=== PATIENT | male | born 1940 | race Caucasian/White ===

== ENCOUNTER 2017-11-20 16:12 | Emergency (ER) | payer MEDICARE, BC ==
[2017-11-20 16:24] VITALS: BP 167/76
--- NOTE | 2017-11-20 16:52 | EDM.PDOC ---
ED HPI GENERAL MEDICAL PROBLEM - General Chief Complaint: Gastrointestinal Problem Stated Complaint: CONSTIPATION Time Seen by Provider: 11/20/17 16:40 Source of Information: Reports: Patient History Limitations: Reports: No Limitations - History of Present Illness INITIAL COMMENTS - FREE TEXT/NARRATIVE: Patient is a 77-year-old male presents ED complaining of constipation. Patient states he has not had a satisfactory bowel movements over the past 2 days. States he's been experiencing low volume liquid stools with the sensation he has to poop. He did attempt to place a Fleet enema today and felt something blocking it. He is questioning being constipated. He does have a history of hemorrhoids in the past. 2 days ago he also placed preparation H cream in his rectum and may have lost the cap within his rectum. He also has a history of BPH with increased urinary frequency and decrease amount. He has no dysuria. At times he's had urinary retention. Denies any nausea,vomiting, fever, abdominal pain, dysuria, or blood in the stools. He's been on no recent antibiotics and has no history of C. difficile. There's been no ingestion of bad or questional food. Bilateral Lower Abdomen Pain Score (Numeric/FACES): 4 - Related Data Allergies Allergy/AdvReac Type Severity Reaction Status Date / Time Cephalosporins Allergy Hives Verified 11/20/17 16:24 Home Meds: Home Meds Multivitamin [Multivitamins] 1 cap PO DAILY 10/12/15 [History] Omeprazole [Prilosec] 20 mg PO BID 10/12/15 [History] Donepezil [Aricept] 5 mg PO BEDTIME 11/20/17 [History] Levofloxacin [Levaquin] 750 mg PO DAILY #4 tab 11/20/17 [Rx] Past Medical History HEENT History: Reports: Cataract, Impaired Vision Other HEENT History: wears glasses Respiratory History: Reports: SOB Gastrointestinal History: Reports: GERD Genitourinary History: Reports: Other (See Below) Other Genitourinary History: retention. Patient straigt catheterizes daily - Past Surgical History Male Surgical History: Reports: Other (See Below) Social & Family History - Tobacco Use Smoking Status *Q: Never Smoker Second Hand Smoke Exposure: No - Caffeine Use Caffeine Use: Reports: Coffee - Recreational Drug Use Recreational Drug Use: No - Living Situation & Occupation Living situation: Reports: , with Spouse Occupation: Retired ED ROS GENERAL - Review of Systems Review Of Systems: ROS reveals no pertinent complaints other than HPI. ED EXAM, GI/ABD - Physical Exam Exam: See Below Exam Limited By: No Limitations General Appearance: Alert, WD/WN, No Apparent Distress Ears: Hearing Grossly Normal Nose: Normal Inspection Throat/Mouth: Normal Voice, No Airway Compromise Head: Atraumatic, Normocephalic Neck: Normal Inspection, Supple Respiratory/Chest: No Respiratory Distress, Lungs Clear, Normal Breath Sounds, No Accessory Muscle Use Cardiovascular: Normal Peripheral Pulses, Regular Rate, Rhythm, No Murmur GI/Abdominal Exam: Non-Tender, No Organomegaly, No Distention, Other ( Hyperactive) Back Exam: Normal Inspection. No: CVA Tenderness (L), CVA Tenderness (R) Neurological: Alert, Oriented, CN II-XII Intact, Normal Cognition, No Motor/ Sensory Deficits Psychiatric: Normal Affect, Normal Mood Skin Exam: Warm, Dry, Intact, Normal Color Course - Vital Signs Last Recorded V/S: Last Vital Signs Temp 96.8 F 11/20/17 16:21 Pulse 86 11/20/17 16:21 Resp 18 11/20/17 16:21 BP 167/76 H 11/20/17 16:21 Pulse Ox 99 11/20/17 16:21 - Orders/Labs/Meds Labs: Laboratory Tests 11/20/17 11/20/17 11/20/17 Range/Units 17:40 18:18 18:18 WBC 13.57 H (4.23-9.07) K/mm3 RBC 5.15 (4.63-6.08) M/mm3 Hgb 16.4 (13.7-17.5) gm/L Hct 47.1 (40.1-51.0) % MCV 91.5 (79.0-92.2) fl MCH 31.8 (25.7-32.2) pg MCHC 34.8 (32.2-35.5) g/dl RDW Std Deviation 43.3 (35.1-43.9) fL Plt Count 211 (163-337) K/mm3 MPV 9.2 L (9.4-12.3) fl Neut % (Auto) 81.6 H (34.0-67.9) % Lymph % (Auto) 11.9 L (21.8-53.1) % [place] % (Auto) 6.3 (5.3-12.2) % Eos % (Auto) 0 L (0.8-7.0) Baso % (Auto) 0.1 (0.1-1.2) % Neut # (Auto) 11.08 H (1.78-5.38) K/mm3 Lymph # (Auto) 1.61 (1.32-3.57) K/mm3 [place] # (Auto) 0.85 H (0.30-0.82) K/mm3 Eos # (Auto) 0.00 L (0.04-0.54) K/mm3 Baso # (Auto) 0.01 (0.01-0.08) K/mm3 Sodium 135 L (136-145) mEq/L Potassium 4.5 (3.5-5.1) mEq/L Chloride 99 (98-107) mEq/L Carbon Dioxide 26 (21-32) mEq/L Anion Gap 14.5 (5-15) BUN 14 (7-18) mg/dL Creatinine 1.2 (0.7-1.3) mg/dL Est Cr Clr Drug Dosing 53.76 mL/min Estimated GFR (MDRD) 59 (>60) mL/min BUN/Creatinine Ratio 11.7 L (14-18) Glucose 107 (83-115) mg/dL Calcium 9.2 (8.5-10.1) mg/dL Total Bilirubin 0.7 (0.2-1.0) mg/dL AST 37 (15-37) U/L ALT 40 (16-63) U/L Alkaline Phosphatase 75 (46-116) U/L C-Reactive Protein < 0.2 (<1.0) mg/dL Total Protein 7.8 (6.4-8.2) g/dl Albumin 4.3 (3.4-5.0) g/dl Globulin 3.5 gm/dL Albumin/Globulin Ratio 1.2 (1-2) Urine Color Yellow (Yellow) Urine Appearance Clear (Clear) Urine pH 7.0 (5.0-8.0) Ur Specific Delta 1.020 (1.005-1.030) Urine Protein Negative (Negative) Urine Glucose (UA) Negative (Negative) Urine Ketones Negative (Negative) Urine Occult Blood Trace-intact H (Negative) Urine Nitrite Positive H (Negative) Urine Bilirubin Negative (Negative) Urine Urobilinogen 0.2 (0.2-1.0) Ur Leukocyte Esterase 3+ H (Negative) Urine RBC 0-5 (0-5) /hpf Urine WBC 5-10 H (0-5) /hpf Ur Epithelial Cells 0-5 (0-5) /hpf Amorphous Sediment Few H (NOT SEEN) /hpf Urine Bacteria Many H (FEW) /hpf Urine Mucus Not seen (FEW) /hpf Meds: Medications Discontinued Medications Generic Name Dose Route Start Last Admin Trade Name Freq PRN Reason Stop Dose Admin Diatrizoate Meglum/Diatrizoate Sod 90 ml 11/20/17 19:19 11/20/17 19:29 Gastrografin 37% PO 11/20/17 19:20 90 ml ONETIME ONE Administration Iopamidol 100 ml 11/20/17 19:19 11/20/17 19:30 Isovue-300 (61%) IVPUSH 11/20/17 19:20 100 ml ONETIME ONE Administration Levofloxacin 750 mg 11/20/17 21:01 11/20/17 21:23 Levaquin PO 11/20/17 21:02 750 mg ONETIME ONE Administration Sodium Chloride 10 ml 11/20/17 17:42 11/20/17 18:09 Saline Flush FLUSH 10 ml ASDIRECTED PRN Administration Keep Vein Open Sodium Chloride 10 ml 11/20/17 19:19 11/20/17 19:30 Saline Flush FLUSH 11/20/17 19:20 10 ml ONETIME ONE Administration - Re-Assessments/Exams Free Text/Narrative Re-Assessment/Exam: Patient has a history of BPH, urinary retention, and increased frequency of urination, and decrease amount. thus ordered a bladder scan and UA. X-ray of the abdomen two-view be obtained to evaluate for stool pattern and cap from Preparation H tube. 1710 bladder scan revealed greater than 490 mL of urine. Per patient does straight cath himself every other day as needed. Will straight cath the patient to obtain UA sample. X-ray of the abdomen did show multiple dilated bowel with air-fluid levels present. Ordered CBC, chem 14, CRP, and CT of the abdomen with oral and IV contrast. IV will be established. 11/20/17 19:08 Labs reviewed: Blood cell count mildly elevated 13.57, hemoglobin 16.4, platelet count 211, neutrophil percentage is a 1.6, neutrophil number is 11.08, chemistry panel is essentially normal. CRP less than 0.2. UA revealed occult blood trace, positive nitrates, leukocyte esterase 3+, urine wbc 's 5-10, amorphous sediment few, urine bacteria many. Urine culture ordered. CT abdomen and pelvis impression: Increased stool within the rectosigmoid region with less or increased stool throughout the portions of the colon. Other incidental findings as noted above. 2044 rectal exam revealed copious amounts of stool within the rectal vault. Discussed options to alleviate the stool within the rectal vault. Patient and have opted to go with soapsuds enema. Patient had great results with the soap suds enema. Will discharge patient home. Departure - Departure Time of Disposition: 21:24 Disposition: Home, Self-Care 01 Condition: Good Clinical Impression: H/O urinary retention, Constipation, UTI, Urinary tract infectious disease, Complicated UTI (urinary tract infection) Constipation Qualifiers: Constipation type: unspecified constipation type Qualified Code(s): K59.00 - Constipation, unspecified - Discharge Information Prescriptions: Levofloxacin [Levaquin] 750 mg PO DAILY #4 tab Instructions: Constipation, Adult, [id number] Referrals: Dwight Carroll MD [Primary Care Provider] - Forms: ED Department Discharge Additional Instructions: As discussed UA revealed UTI. Thus will have you take levaquin 750 mg everyday for 5 days. 1st dose administerd in the E.D. Push the fluids. Take miralax 1 capful with juice every a.m. Followup with PCP to ensure resolution of UTI in 9 days and to discuss BPH/Urine retention concerns. As previously instructed straight cath daily. Return to the E.D. for any new or worsening symptoms.
[2017-11-20] MEDS ORDERED: Sodium Chloride 0.9% 10 ML Syringe FLUSH PRN (17:42)
[2017-11-20] MEDS ORDERED: Iopamidol 612 MG/ML 100 ML Bottle IVPUSH ONE (19:19)
[2017-11-20] MEDS ORDERED: Sodium Chloride 0.9% 10 ML Syringe FLUSH ONE (19:19)
[2017-11-20] MEDS ORDERED: Diatrizoate Meglumine/Diatrizoate Sodium 37% 120 ML Bottle PO ONE (19:19)
--- NOTE | 2017-11-20 19:56 | CT ---
CT abdomen and pelvis Technique: Multiple axial sections were obtained from above the dome of the diaphragm inferiorly through the pubic symphysis. Intravenous and oral contrast was utilized. Delayed images were also obtained through the bladder. Comparison: Prior noncontrast CT exam of 01/25/13 and contrast-enhanced study of 10/12/15 was utilized for comparison. Findings: Visualized lung bases shows slight scarring with nothing acute being seen. Liver shows a low-density lesion within the right lobe measuring roughly 5 cm. This is similar to prior studies and is felt compatible with large hemangioma. No additional abnormality is seen within the liver. Small hiatal hernia is seen. Spleen size is normal. Adrenal glands show no nodule. Kidneys show symmetric contrast enhancement without hydronephrosis or mass. Pancreas is within normal limits. Aorta and iliac vessels shows atherosclerotic calcification without aneurysmal dilatation. No retroperitoneal adenopathy or mesenteric abnormalities are seen. Surgical material is seen within the lower anterior abdominal wall. Increased stool is noted within the rectum and cecum with lesser increased stool within other portions of the colon. Delayed images shows contrast within the bladder. Bone window settings were reviewed which shows severe disc space narrowing at L4-L5 and L5-S1 with vacuum phenomena. Diffuse endplate osteophytes are seen. Impression: 1. Increased stool within the rectosigmoid region with lesser increased stool throughout other portions of the colon. 2. Other incidental findings as noted above. Diagnostic code #2
[2017-11-20] MEDS ORDERED: Levofloxacin 750 MG Tab PO ONE (21:01)
--- NOTE | 2017-11-21 06:24 | CR ---
Abdomen: Supine view of the abdomen was obtained as well as upright study. Scattered gas within colon is seen which appears nonobstructive. Slight degenerative spurring is noted within the spine. Surgical material is seen within the lower pelvis. Calcifications are seen off of both hips felt to be dystrophic. Vascular calcification is also noted. No free air is seen. Impression: 1. Incidental findings as noted above. Diagnostic code #2
== END 2017-11-20 21:24 | disposition home or self-care (01) ==
LOC: JD.ED 16:12
DX: N39.0 Urinary tract infection, site not specified (principal); K59.00 Constipation, unspecified; Z88.8 Allergy status to other drugs, medicaments and biological substances; Z79.899 Other long term (current) drug therapy
CPT/HCPCS: 36415; 74019; 74177; 80053; 81001; 85025; 86140; 87086; 87088; 87186; 99284; A9270; J7050; Q9963; Q9967

== ENCOUNTER 2018-12-09 07:11 | Emergency (ER) | payer MEDICARE, BC ==
[2018-12-09 07:29] VITALS: BP 167/79
--- NOTE | 2018-12-09 08:07 | EDM.PDOC ---
ED HPI GENERAL MEDICAL PROBLEM - General Chief Complaint: Respiratory Problem Stated Complaint: COUGH Time Seen by Provider: 12/09/18 07:37 Source of Information: Reports: Patient, Family (), RN Notes Reviewed - History of Present Illness INITIAL COMMENTS - FREE TEXT/NARRATIVE: 78-year-old gentleman with onset of cough, nasal and sinus congestion 2 days ago. The cough became much worse during the night. Patient has dementia so not able to give accurate history. Information I am obtaining is primarily from his . States he seemed more confused at 4:00 this morning. She's been watching his temp, no fever. He does complain of mild scratchy sore throat. Cough is nonproductive at times with mostly clear colored phlegm. History of pneumonia many years ago. He does not smoke. - Related Data Allergies Allergy/AdvReac Type Severity Reaction Status Date / Time Cephalosporins Allergy Hives Verified 12/09/18 07:28 Home Meds: Home Meds Multivitamin [Multivitamins] 1 cap PO DAILY 10/12/15 [History] Omeprazole [Prilosec] 20 mg PO BID 10/12/15 [History] Donepezil [Aricept] 5 mg PO BEDTIME 11/20/17 [History] Past Medical History HEENT History: Reports: Cataract, Impaired Vision Other HEENT History: wears glasses Respiratory History: Reports: SOB Gastrointestinal History: Reports: GERD Genitourinary History: Reports: Other (See Below) Other Genitourinary History: retention. Patient straigt catheterizes daily Psychiatric History: Reports: Dementia - Past Surgical History Male Surgical History: Reports: Other (See Below) Social & Family History - Caffeine Use Caffeine Use: Reports: Coffee - Living Situation & Occupation Living situation: Reports: , with Spouse Occupation: Retired ED ROS GENERAL - Review of Systems Review Of Systems: See Below Constitutional: Reports: Chills. Denies: Fever HEENT: Reports: Rhinitis (Mild nasal congestion yesterday and today). Denies: Sinus Problem, Throat Pain Respiratory: Reports: Cough (Frequent occasionally productive of clear colored phlegm). Denies: Shortness of Breath Cardiovascular: Denies: Chest Pain GI/Abdominal: Denies: Abdominal Pain, Nausea, Vomiting Musculoskeletal: Reports: No Symptoms Skin: Reports: No Symptoms Neurological: Denies: Headache ED EXAM, GENERAL - Physical Exam Exam: See Below General Appearance: Alert, No Apparent Distress Nose: Normal Inspection Throat/Mouth: Normal Inspection, Normal Oropharynx Head: Atraumatic Neck: Supple, Full Range of Motion Respiratory/Chest: No Respiratory Distress, Lungs Clear, Normal Breath Sounds. No: Rales, Rhonchi, Wheezing Cardiovascular: Regular Rate, Rhythm GI/Abdominal: Soft, Non-Tender Extremities: Normal Inspection, Normal Range of Motion. No: Pedal Edema, Leg Pain Neurological: Alert, No Motor/Sensory Deficits, Other (Pleasantly confused, mild ) Skin Exam: Warm, Dry, Normal Color Course - Vital Signs Last Recorded V/S: Last Vital Signs Temp 98.7 F 12/09/18 07:25 Pulse 89 12/09/18 07:25 Resp 16 12/09/18 07:25 BP 167/79 H 12/09/18 07:25 Pulse Ox 95 12/09/18 07:25 - Re-Assessments/Exams Free Text/Narrative Re-Assessment/Exam: 12/09/18 08:56 Influenza screen is negative, chest x-ray does not show obvious infiltrate although parabronchial markings are mildly increased. With the nasal and sinus congestion, acute onset this really does look primarily viral. Discharge instructions as documented. Departure - Departure Time of Disposition: 08:56 Disposition: Home, Self-Care 01 Condition: Fair Clinical Impression: Viral upper respiratory infection - Discharge Information Instructions: Viral Respiratory Infection, Ehvs-Md-Trct Referrals: Donna Scott MD [Primary Care Provider] - Forms: ED Department Discharge Additional Instructions: Continue with vaporizer or humidifier. Robitussin cough medication should be safe, stop the Mucinex. drink plenty of water to maintain hydration. Follow-up clinic if not much better within 5-7 days as expected. Return to ED as needed if symptoms worsening in any way.
--- NOTE | 2018-12-09 08:54 | CR ---
Chest: Portable view of the chest was obtained. Comparison: No prior chest x-ray. Heart is slightly enlarged. Upper mediastinum is normal. Scarring and anastomotic sutures are seen within the right upper lung. Slight pleural thickening is noted within the right lateral lung base which is likely chronic. No acute parenchymal change is suspected. Bony structures are grossly intact. Impression: 1. Findings as noted above. Nothing acute is suspected on portable chest x-ray. Diagnostic code #2
== END 2018-12-09 09:10 | disposition home or self-care (01) ==
LOC: JD.ED 07:11
DX: J06.9 Acute upper respiratory infection, unspecified (principal); K21.9 Gastro-esophageal reflux disease without esophagitis; Z79.899 Other long term (current) drug therapy
CPT/HCPCS: 71045; 71045-26; 87804; 99282; 99283

== ENCOUNTER 2018-12-21 07:37 | Emergency (ER) | payer MEDICARE, BC ==
--- NOTE | 2018-12-21 08:08 | EDM.PDOC ---
ED HPI GENERAL MEDICAL PROBLEM - General Chief Complaint: Laceration Stated Complaint: HEAD LAC Time Seen by Provider: 12/21/18 08:08 - History of Present Illness INITIAL COMMENTS - FREE TEXT/NARRATIVE: 78-year-old male presents emergency room with an injury. Patient has advanced dementia however he seems to live on his own in an assisted living type situation. Apparently he was up all night cleaning his apartment and he bumped his head and something circumstances of the potential fall or head injury are not well understood and he's unable to provide much of a history to but it did occur last night sometime - Related Data Allergies Allergy/AdvReac Type Severity Reaction Status Date / Time Cephalosporins Allergy Hives Verified 12/09/18 07:28 erythromycin base Allergy Cannot Verified 12/21/18 07:59 Remember Penicillins Allergy Cannot Verified 12/21/18 07:57 Remember Sulfa (Sulfonamide Allergy Cannot Verified 12/21/18 07:59 Antibiotics) Remember Home Meds: Home Meds Omeprazole [Prilosec] 20 mg PO DAILY 10/12/15 [History] Aspirin [Ecotrin] 81 mg PO DAILY 12/21/18 [History] Levothyroxine Sodium [Tirosint] 50 mcg PO DAILY 12/21/18 [History] Linaclotide [Linzess] 145 mg PO DAILY 12/21/18 [History] Multivitamin/Iron/Folic Acid [Centrum Adults Tablet] 1 tab PO DAILY 12/21/18 [ History] OLANZapine [Olanzapine] 2.5 mg PO DAILY 12/21/18 [History] Timolol Maleate [Timoptic 0.5% Ophth Soln] 1 drop EYEBOTH BID 12/21/18 [History] Past Medical History HEENT History: Reports: Cataract, Impaired Vision Other HEENT History: wears glasses Respiratory History: Reports: SOB Gastrointestinal History: Reports: GERD Genitourinary History: Reports: Other (See Below) Other Genitourinary History: retention. Patient straigt catheterizes daily Psychiatric History: Reports: Dementia - Past Surgical History Male Surgical History: Reports: Other (See Below) Social & Family History - Caffeine Use Caffeine Use: Reports: Coffee - Living Situation & Occupation Living situation: Reports: , with Spouse Occupation: Retired ED ROS GENERAL - Review of Systems Review Of Systems: Unable To Obtain ED EXAM, SKIN/RASH Exam: See Below Exam Limited By: No Limitations General Appearance: Alert, No Apparent Distress Eye Exam: Bilateral Eye: Normal Inspection Ears: Normal External Exam, Normal Canal, Hearing Grossly Normal, Normal TMs Nose: Normal Inspection, Normal Mucosa, No Blood Throat/Mouth: Normal Inspection, Normal Lips, Normal Teeth, Normal Gums, Normal Oropharynx, Normal Voice, No Airway Compromise Head: Atraumatic, Normocephalic Neck: Normal Inspection, Supple, Non-Tender, Full Range of Motion Respiratory/Chest: No Respiratory Distress, Lungs Clear, Normal Breath Sounds Cardiovascular: Regular Rate, Rhythm, No Edema, No Murmur GI/Abdominal: Normal Bowel Sounds, Soft, Non-Tender Back Exam: Normal Inspection. No: CVA Tenderness (L), CVA Tenderness (R) Extremities: Normal Inspection, No Pedal Edema Skin: Other (In exam is normal other than his laceration and abrasion site on his scalp) ED SKIN PROCEDURES - Laceration/Wound Repair Head Lac/Wound length In cm: 1.7 Appearance: Clean Distal NVT: Neuro & Vascular Intact Local Anesthesia - Lidocaine (Xylocaine): 1% Plain Local Anesthetic Volume: 3cc Skin Prep: Saline Exploration/Debridement/Repair: Wound Explored, In a Bloodless Field, Explored to Base Closed with: [place] Suture Size: other (5 ping placed) Sterile Dressing Applied: Nurse Tetanus Status Addressed: Other (Updated) Complications: No Course - Vital Signs Last Recorded V/S: Last Vital Signs Temp 36.6 C 12/21/18 08:05 Pulse 80 12/21/18 08:05 Resp 16 12/21/18 08:05 BP 131/69 12/21/18 08:05 Pulse Ox 97 12/21/18 08:05 - Orders/Labs/Meds Orders: Active Orders 24 hr Category Date Time Status Vaccines to be Administered [RC] PER UNIT ROUTINE Care 12/21/18 09:30 Active Head wo Cont [CT] Stat Exams 12/21/18 08:17 Taken Meds: Medications Discontinued Medications Generic Name Dose Route Start Last Admin Trade Name Freq PRN Reason Stop Dose Admin Diphtheria/Tetanus/Acell Pertussis Confirm 12/21/18 08:20 12/21/18 09:30 Adacel Administered 12/21/18 08:21 Not Given Dose 0.5 ml .ROUTE .STK-MED ONE Diphtheria/Tetanus/Acell Pertussis 0.5 ml 12/21/18 08:20 12/21/18 08:20 Adacel IM 12/21/18 08:21 0.5 ml .ONCE ONE Administration Lidocaine HCl 10 ml 12/21/18 08:13 12/21/18 08:24 Xylocaine 1% INJECT 12/21/18 08:14 10 ml ONETIME ONE Administration - Re-Assessments/Exams Free Text/Narrative Re-Assessment/Exam: 12/21/18 09:53 CT is unremarkable patient had his laceration repaired without difficulty Departure - Departure Time of Disposition: 09:57 Disposition: Home, Self-Care 01 Clinical Impression: Head injury, Scalp laceration - Discharge Information Referrals: Donna Scott MD [Primary Care Provider] - Forms: ED Department Discharge Additional Instructions: Treatment emergency room with any questions problems worsening symptoms. Follow-up in the clinic in 10-12 days for staple removal. Keep the wound absolutely clean and dry for the next 48 hours after 48 hours he can let water gently run over it for a few seconds then gently dab dry. - My Orders Last 24 Hours: My Active Orders 12/21/18 08:17 Head wo Cont [CT] Stat 12/21/18 09:30 Vaccines to be Administered [RC] PER UNIT ROUTINE - Assessment/Plan Last 24 Hours: My Active Orders 12/21/18 08:17 Head wo Cont [CT] Stat 12/21/18 09:30 Vaccines to be Administered [RC] PER UNIT ROUTINE
[2018-12-21] MEDS ORDERED: Lidocaine 1% 10 ML MDV INJECT ONE (08:13)
[2018-12-21] MEDS ORDERED: Diphtheria,Pertussis(Acell),Tetanus Vaccine 0.5 ML Syringe IM ONE (08:20)
[2018-12-21] MEDS ORDERED: Diphtheria,Pertussis(Acell),Tetanus Vaccine 0.5 ML Syringe ONE (08:20)
[2018-12-21 10:27] VITALS: BP 150/72
--- NOTE | 2018-12-23 08:14 | CT ---
Head CT Technique: Multiple axial sections through the brain were obtained. Intravenous contrast was not utilized. Comparison: No prior intracranial imaging is available. Findings: Ventricles along with basal cisterns and sulci over the convexities are moderately prominent. Several low-density findings seen within the basal ganglia most likely representing minimal old lacunar infarcts. Symmetric low density seen posteriorly within the basal ganglia most likely representing prominent perivascular space. No other abnormal parenchymal densities are seen. No evidence of intracranial hemorrhage. Atherosclerotic calcification noted within the carotid siphon. Slight mucosal thickening seen within the ethmoid sinuses. No acute calvarial abnormality is seen. Minimal density is noted within the posterior right parietal scalp possibly due to minimal soft tissue swelling. Impression: 1. Findings felt to be incidental as noted above. No acute intracranial abnormality is identified. Diagnostic code #2 I agree with preliminary report from [facility], finalized on 12/21/18, 10:18 AM Central Time
== END 2018-12-21 10:05 | disposition home or self-care (01) ==
LOC: JD.ED 07:37
DX: S01.01XA Laceration without foreign body of scalp, initial encounter (principal); S09.90XA Unspecified injury of head, initial encounter; Z23 Encounter for immunization; Z79.899 Other long term (current) drug therapy; Z79.82 Long term (current) use of aspirin; Z88.1 Allergy status to other antibiotic agents; Z88.0 Allergy status to penicillin; W22.8XXA Striking against or struck by other objects, initial encounter
CPT/HCPCS: 12001; 70450; 90471; 90700; 99283; J2001